=== PATIENT | female | born 1955 | race Caucasian/White ===

== ENCOUNTER 2019-08-21 16:09 | Observation (INO) | payer BC ==
[~2019-08-21] VITALS: Ht 152.4 cm; Wt 111.6 kg
--- NOTE | 2019-08-21 17:17 | NUR ---
PRESS FEEDER: PT TO ROOM FROM [facility]TO
--- NOTE | 2019-08-21 18:45 | NUR ---
PIV PLACE, LABS DRAWN. PT RESTING COMFORTABLY ON GURNEY. MELVI. SISTER AT BEDSIDE.
[2019-08-21 18:56] LABS: BASOPHILS # (AUTO) 0.02 x10^3/uL (0-0.1); BASOPHILS % (AUTO) 0 % (0-1); EOSINOPHILS # (AUTO) 0.06 x10^3/uL (0-0.4); EOSINOPHILS % (AUTO) 1 % (1-7); LYMPHOCYTES # (AUTO) 1.88 x10^3/uL (1-3.4); LYMPHOCYTES % (AUTO) 15 % (22-44); MD NO; MEAN CORPUSCULAR HGB CONC 33.7 g/dL (32.4-35.8); MEAN CORPUSCULAR VOLUME 86.2 fL (80-100); MEAN PLATELET VOLUME 8.1 fL (7.4-10.4); MONOCYTES # (AUTO) 0.55 x10^3/uL (0.2-0.8); MONOCYTES % (AUTO) 4 % (2-9); NEUTROPHILS # (AUTO) 9.88 x10^3/uL (1.8-6.8); NEUTROPHILS % (AUTO) 80 % (42-75); PLATELET COUNT 351 x10^3/uL (130-400); RED BLOOD COUNT 4.87 x10^6/uL (3.82-5.3); RED CELL DISTRIBUTION WIDTH 14.4 % (9.6-15.2)
[2019-08-21] MEDS ORDERED: PLEASE ENTER ALLERGIES MC SCH (19:00)
[2019-08-21] MEDS ORDERED: SODIUM CHLORIDE FLUSH 10ML SYR IVF ONE (19:00)
[2019-08-21] MEDS ORDERED: PROPOFOL 10 MG/ML, 20ML IVPush ONE (19:00)
[2019-08-21] MEDS ORDERED: PROPOFOL 10 MG/ML, 20ML ONE (19:02)
--- NOTE | 2019-08-21 19:02 | NUR ---
REPORT GIVEN TO SUZI CORDERO, FOR PROCEDURAL SEDATION FOR RELOCATION OF RIGHT ELBOW.
[2019-08-21 19:08] LABS: ANION GAP 9 mmol/L (5-15); CALCIUM 9.4 mg/dL (8.5-10.1); CHLORIDE 104 mmol/L (98-107)
[2019-08-21] MEDS ORDERED: ANXIETY MED (19:39)
--- NOTE | 2019-08-21 19:52 | NUR ---
RECEIVED REPORT FROM SUZI AFTER PROCEDURAL SEDATION. PT RECEIVED TOTAL 100 PROPOFOL. RIGHT ARM SPLINTED AND IN SLING. POST REDUCTION XRAY COMPLETE. PT TO HAVE SURGERY ON BROKEN ARM IN MORNING. PT BACK TO BASELINE AFTER SEDATION.
--- NOTE | 2019-08-21 20:35 | NUR ---
REPORT GIVEN TO FRAN CORDERO.
[2019-08-21 21:09] VITALS: BP 143/82
[2019-08-21] MEDS ORDERED: PARO10TA56 PO (21:44)
[2019-08-21] MEDS ORDERED: ACETAMINOPHEN 325 MG TABLET PO PRN (22:00)
[2019-08-21] MEDS ORDERED: ONDANSETRON 2MG/ML, 2ML IVPush PRN (22:00)
[2019-08-21] MEDS ORDERED: ONDANSETRON 4 MG TABLET PO PRN (22:00)
[2019-08-21] MEDS ORDERED: HYDROmorphone 1 MG/ML, 1ML INJ IV PRN (22:00)
[2019-08-21] MEDS: OXYcodone/APAP 5/325MG TABLET PO PRN (22:40)
[2019-08-22] VITALS (7 sets, daily range): BP systolic 105–164; BP diastolic 65–79
[2019-08-22] MEDS ORDERED: HYDROmorphone 2 MG/ML, 1ML ONE (09:57)
[2019-08-22] MEDS ORDERED: PROPOFOL 50 ML ONE (14:45)
[2019-08-22] MEDS ORDERED: FENTANYL PF 250 MCG/5ML ONE (14:45)
[2019-08-22] MEDS ORDERED: BUPIVACAINE/PF-EPI 0.5% 1:200K ONE (14:46)
[2019-08-22] MEDS ORDERED: NEOSPORIN OINT, 15GM ONE (14:46)
[2019-08-22] MEDS ORDERED: CEFAZOLIN 1,000 MG ONE ×2 (15:18)
[2019-08-22] MEDS ORDERED: ROCURONIUM 10MG/ML,5ML ONE (15:18)
[2019-08-22] MEDS ORDERED: ONDANSETRON 2MG/ML, 2ML ONE (15:20)
[2019-08-22] MEDS ORDERED: SUCCINYLCHOLINE 20 MG/ML, 10ML ONE (15:20)
[2019-08-22] MEDS ORDERED: PROMETHAZINE 25 MG/ML, 1ML IV PRN (15:30)
[2019-08-22] MEDS ORDERED: ONDANSETRON ODT 8 MG PO PRN (15:30)
[2019-08-22] MEDS ORDERED: hydrALAzine 20 MG/ML, 1ML IV PRN (15:30)
[2019-08-22] MEDS ORDERED: METOPROLOL 1 MG/ML, 5ML IV PRN (15:30)
[2019-08-22] MEDS ORDERED: MORPHINE SULFATE 4 MG/ML, 1ML IVPush PRN (15:30)
[2019-08-22] MEDS ORDERED: DIAZEPAM 5 MG/ML, 2ML IVPush PRN (15:30)
[2019-08-22] MEDS ORDERED: EPHEDRINE 50 MG/ML, 1ML IM PRN (15:30)
[2019-08-22] MEDS ORDERED: ONDANSETRON 2MG/ML, 2ML IV PRN (15:30)
[2019-08-22] MEDS ORDERED: EPHEDRINE 50 MG/ML, 1ML IVPush PRN (15:30)
[2019-08-22] MEDS ORDERED: OXYcodone 5 MG/5 ML ORAL.SOL UDC PO PRN (15:30)
[2019-08-22] MEDS ORDERED: MEPERIDINE/PF 25MG/ML,1ML IVPush PRN (15:30)
[2019-08-22] MEDS ORDERED: DIPHENHYDRAMINE 50 MG/ML, 1ML IVPush PRN (15:30)
[2019-08-22] MEDS ORDERED: FENTANYL PF 100 MCG/2ML ONE ×2 (16:17→16:39)
[2019-08-22] MEDS ORDERED: OXYcodone 5 MG/5 ML ORAL.SOL UDC ONE (16:17)
[2019-08-22] MEDS: FENTANYL PF 100 MCG/2ML IV PRN ×4 (16:19→16:46)
[2019-08-22] MEDS ORDERED: HYDROmorphone 1 MG/ML, 1ML INJ ONE (16:28)
[2019-08-22] MEDS: HYDROmorphone 2 MG/ML, 1ML IVPush PRN ×2 (16:33→16:38)
[2019-08-22] MEDS ORDERED: Oxycodone (17:55)
[2019-08-22] MEDS ORDERED: OXYC5TAB2 PO (17:57)
[2019-08-22] MEDS: OXYcodone/APAP 5/325MG TABLET PO PRN (22:24)
== END 2019-08-22 23:20 | disposition home or self-care (01) ==
LOC: ED 17:57 → INTOOBSV 19:31 → 3N 19:31 → 4NE 08-22 17:09
PROVIDERS: ADMIT Orthopaedic Surgery; ATTEND Orthopaedic Surgery
DX: S52.031A Displaced fracture of olecranon process with intraarticular extension of right ulna, initial encounter for closed fracture (principal); S53.144A Lateral dislocation of right ulnohumeral joint, initial encounter; W18.30XA Fall on same level, unspecified, initial encounter; Y93.01 Activity, walking, marching and hiking; Y92.830 Public park as the place of occurrence of the external cause
CPT/HCPCS: 24605; 24685; 36415; 71045; 73070; 76000; 80048; 82040; 85025; 93005; 96374; 96375; 99285; C1713; G0378; J0330; J0690; J1170; J2405; J2704; J3010